=== PATIENT | female | born 1950 | race Caucasian/White ===

== ENCOUNTER 2025-05-13 11:50 | Emergency (ER) | payer MEDICARE, SELFPAY ==
--- OUTSIDE RECORDS SUMMARY | 2025-05-03 17:30 | XMS_ITS | Encounter Summary ---
Author Organization [facility] and [facility] Address [address] [place] [address] Care Team Providers Care General Production Manager Name Role Phone Asked, Nopcp Primary Care Provider Unavailabl e Reason for Visit * ReasonCommentsAnxiety Encounter Details DateTypeDepartmentCare Team (Latest Contact Info)Mdljlkwurrg73/17/2025 3:30 PM MDTOffice Visit [facility] [address] [place] [address] [phone] Dana Okeefe MD [facility] [place], [place] [id number] Anxiety (Primary Dx); Elevated blood pressure reading in office without diagnosis of hypertension; Mixed hyperlipidemia Social History Tobacco UseTypesPacks/DayYears UsedDateSmoking Tobacco: [id number] - 1999Smokeless Tobacco: NeverAlcohol UseStandard Drinks/WeekCommentsYes0 (1 standard drink = 0.6 oz pure alcohol)RARECommentsNoSex and Gender InformationValueDate RecordedSex Assigned at YaflmFjtjki52/04/2024 4:12 AM MDT Legal IepAwpull58/20/2018 1:15 PM MSTGender IwnbkuybNbkjkk44/04/2024 4:12 AM MDT Sexual OrientationNot on fileOccupationIndustryJob Start DateJob End DateRetired Not on fileNot on fileNot on filedocumented as of this encounter Last Filed Vital Signs Vital SignReadingTime TakenCommentsBlood Hylwppbs750/7405/03/2025 3:33 PM MDT Vpckk165805/03/2025 3:33 PM MDTTemperature--Respiratory Rate--Oxygen Cyspowqnuc94% 05/03/2025 3:33 PM MDTInhaled Oxygen Concentration--Qfwjvz18.5 kg (162 lb) 05/03/2025 3:33 PM PBVdkaswnQmgbet650.6 cm (5' 4 )05/03/2025 3:33 PM MDTstated Body Mass Index27.8105/03/2025 3:33 PM MDTdocumented in this encounter Progress Notes * Dana Okeefe MD - 05/03/2025 3:30 PM MDT Assessment and Plan: ICD-10-CM 1. Anxiety F41.9 ALPRAZolam (XANAX) 0.5 mg tablet 2. Elevated blood pressure reading in office without diagnosis of hypertension R03.0 Albumin/Creatinine Ratio Random Urine Comprehensive Metabolic Panel 3. Mixed hyperlipidemia E78.2 Comprehensive Metabolic Panel Lipid Panel #Severe anxiety with flights: prescribe xanax 0.5 mg tab x 10 for upcoming flights to/from [place]. #Elevated blood pressure: elevated in office today to 148/74, last prior BP on file was from 2023 and was elevated. Not interested in starting medication at this point. Recommend low salt diet and exercise. Recommend purchasing BP cuff and keeping BP log. RTC in 2-4 weeks for recheck and for wellness exam. Check CMP, urine ACR with annual labs today. Subjective: Patient ID: Muriel is a 74 y.o. female who presents to [facility] for discussion regarding flight anxiety and to establish a new PCP. Leaving Tuesday05/07/25 for [place] and feeling very anxious. Navneet Chester RN Was previously prescribed xanax for flight travel in past which helped a lot. Would like a prescription for this. CURRENT MEDICATIONS: Current Outpatient Medications Medication Sig ALPRAZolam (XANAX) 0.5 mg tablet Take 1 tablet by mouth 2 times daily as needed for anxiety. gabapentin (NEURONTIN) 300 mg capsule for Neuropathic Pain. 1-2 at bedtime. Ok to take 1-2 daytime if tolerated No current facility-administered medications for this visit. ALLERGIES: Patient has no known allergies. Above HPI reviewed. Review of Systems Constitutional: Negative. HENT: Negative. Eyes: Negative. Respiratory: Negative. Skin: Negative. Neurological: Negative. PAST MEDICAL INFORMATION: Past Medical History[1] Allergies[2] Objective: Vital Signs: Visit Vitals BP 148/74 Pulse 65 Ht 1.626 m (5' 4 ) Comment: stated Wt 73.5 kg (162 lb) Comment: stated LMP (LMP Unknown) SpO2 96% BMI 27.81 kg/m?? reports that she quit smoking about 25 years ago. Her smoking use included cigarettes. She started smoking about 40 years ago. She has a 15 pack-year smoking history. She has never used smokeless tobacco. Physical Exam Vitals reviewed. Constitutional: Appearance: Normal appearance. HENT: Head: Normocephalic and atraumatic. Eyes: Conjunctiva/sclera: Conjunctivae normal. Pulmonary: Effort: Pulmonary effort is normal. Musculoskeletal: Cervical back: Normal range of motion. Neurological: General: No focal deficit present. Mental Status: She is alert and oriented to person, place, and time. Psychiatric: Mood and Affect: Mood normal. Behavior: Behavior normal. Procedures DATA: No results found for this or any previous visit (from the past 24 hours). 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 Sciatica Snores Vitamin D deficiency Zoster 09/2021 [2] No Known Allergies documented in this encounter Miscellaneous Notes * Addendum Note - Navneet Chester RN - 05/03/2025 3:30 PM MDTAddended by: NAVNEET CHESTER on: 05/03/2025 04:28 PM Modules accepted: Orders documented in this encounter Plan of Treatment Not on file documented as of this encounter Procedures Procedure NamePriorityDate/TimeAssociated DiagnosisCommentsALBUMIN/CREATININE RATIO RANDOM GBUCXXxlkdvf40/17/2025 4:28 PM MDT Elevated blood pressure reading in office without diagnosis of hypertension LIPID JCZJLPgayogz01/17/2025 4:28 PM MDT Mixed hyperlipidemia COMPREHENSIVE METABOLIC JCLXIZsajrls22/17/2025 4:28 PM MDT Elevated blood pressure reading in office without diagnosis of hypertension Mixed hyperlipidemia documented in this encounter Results * (ABNORMAL) Lipid Panel (05/03/2025 4:28 PM MDT)ComponentValueRef RangeTest MethodAnalysis TimePerformed AtPathologist WarrfqtrzSthutbvdkokvj405(H)<=150 mg/dL05/03/2025 6:22 PM [facility] Comment: ?Range (mg/dL) Normal <150 Borderline High ?? 150 - 199 High ?200 - 499 Very High >/= 500 Oddqubzbfwj279(H)95 - 200 mg/dL05/03/2025 6:22 PM [facility]HDL68mg/dL05/03/2025 6:22 PM [facility] Iuutjfedox793<=129 mg/dL05/03/2025 6:22 PM [facility]Comment: NCEP III guidelines: ??TARGET VALUE ? < 100 mg/dL Desirable ? 100-129 mg/dL Above Desirable ? 130-159 mg/dL Borderline High ? 160-189 mg/dL High ? 190 mg/dL Very High ? Due to the limitations of the [facility] Calculation, a direct LDL measurement is recommendedin cases of Elevated BMI, Triglycerides >400 or calculated LDL's <10. Non JAQ2382 - 189 mg/dL05/03/2025 6:22 PM [facility]: For a better estimate of LDL-C in the context of hypertriglyceridemia, subtract 30 mg/dL from this non-HDL-C value. NCEP III guidelines: ??TARGET VALUE < 100 mg/dL Desirable 100-129 mg/dL Above Desirable 130-159 mg/dL Borderline High 160-189 mg/dL High => 190 Very High Risk factors include: Cigarette smoking, Hypertension, family history Specimen (Source)Anatomical Location / LateralityCollection Method / Volume Collection TimeReceived TimeBloodBLOOD SPECIMEN / UnknownVenipuncture / Unknown 05/03/2025 4:28 PM MDT1 4:28 PM MDT Narrative Authorizing ProviderResult TypeResult StatusJodie Mirza Okeefe MDLAB BLOOD ORDERABLESFinal ResultPerforming OrganizationAddressCity/State/[place] [address], [facility] [phone] * (ABNORMAL) Comprehensive Metabolic Panel (05/03/2025 4:28 PM MDT)Component ValueRef RangeTest MethodAnalysis TimePerformed AtPathologist SignatureGlucose Serum/Ybymla637(H)68 - 99 mg/dL05/03/2025 6:22 PM [facility] NHRMCBlood Urea Ptiufkae0489 - 20 mg/dL05/03/2025 6:22 PM [facility]Creatinine Serum/Plasma 0.820.55 - 1.02 mg/dL10/ 6:22 PM [facility]TTHE [facility] - [facility] CENTERBUN/Creatinine Ratio15.91 6:22 PM MDTPARKVIEW HEALTH [facility] - [facility] NORTHodium Serum/Bihbao106181 - 145 mmol/L 05/03/2025 6:22 PM MDTPARK[facility] Potassium Serum/Plasma3.93.5 - 5.1 mmol/L1 6:22 PM MDTTHE [facility] - [facility] MED[facility] CENTERChloride Serum/Yzgwro16129 - 112 mmol/L1 6:22 PM NCTPARK[facility] Carbon Hewjftl9733 - 26 mmol/L1 6:22 PM NCTPARK[facility] LAB[facility] - [facility] CENTERCalcium Serum/Plasma9.48.8 - 10.3 mg/dL05/03/2025 6:22 PM NCTPARK[facility] LAB[facility] - [facility] CENTERProtein Total Serum/Plasma7.36.2 - 8.1 g/dL05/03/2025 6:22 PM [facility]CTTHE [facility] - [facility] CENTERAlbumin4.43.2 - 4.6 g/dL05/03/2025 6:22 PM [facility]CTTHE [facility] - [facility] MED[facility] CENTERBilirubin Total0.50.3 - 1.2 mg/dL 05/03/2025 6:22 PM [facility] Aspartate Ynzjjaulqbcjtomk750 - 34 U/L1 6:22 PM NCTPARKVIEW [facility] - [facility] CENTERAlanine Mqldxlypueetqzvf950 - 55 U/L 05/03/2025 6:22 PM [facility] Alkaline Phosphatase Zfqax8208 - 150 U/L1 6:22 PM [facility] CENTERComment:Alkaline Phosphatase ranges can vary with age and gender. High levels are normally seen in children undergoing growth spurts and in females.Total Globulin2.9g/dL 05/03/2025 6:22 PM NCTPARKVIEW [facility] LAB[facility]ATORY - [facility] MED[facility] CENTERA/G Ratio1.5Auami40 6:22 PM MDTCAPE FEAR VALLEY MEDICAL CENTEREstimated GFR75>=60 mL/min/1.73 square meters 05/03/2025 6:22 PM MDT [facility]ENTERComment:The 2020 CKD-EPI creatinine equation (IDMS-traceable) was used to approximate GFR. It's often unreliable when one is acutely ill or . This estimate assumes a regular diet and an average physique. Because estimated GFR can differ by more than 30% from measured GFR, consider ordering cystatinC to further assess kidney function or stage CKD if necessary.Anion Hnd221 - 16 mmol/L1 6:22 PM [facility]OSPITALpecimen (Source) Anatomical Location / LateralityCollection Method / VolumeCollection Time Received TimeBloodBLOOD SPECIMEN / UnknownVenipuncture / Pilswpm8105/03/2025 4:28 PM MDT1 4:28 PM MDT Narrative Authorizing ProviderResult TypeResult StatusJodie Mirza Okeefe [facility] BLOOD ORDERABLESFinal ResultPerforming OrganizationAddressCity/State/ZIP CodePhone Number [address] [phone] * Albumin/Creatinine Ratio Random Urine (05/03/2025 4:28 PM MDT)ComponentValue Ref RangeTest MethodAnalysis TimePerformed AtPathologist SignatureAlbumin Random Urine1.0mg/dL05/04/2025 7:10 PM [facility], COCreatinine Random Duhuy165.0mg/dL05/04/2025 7:10 PM [facility] COAlbumin/Creatinine Ratio5.7<30.0 mg/g Creat1 7:10 PM [facility], COComment: Random Urine Collection mg/g Creatinine Normal-- <30 Moderately Increased 30-299 Clinical albuminuria >300 Specimen (Source)Anatomical Location / LateralityCollection Method / Volume Collection TimeReceived TimeUrineURINE SPECIMEN / Yqpxswp6605/03/2025 4:28 PM MDT 05/03/2025 4:28 PM MDT Narrative Authorizing ProviderResult TypeResult StatusJodie Mirza IVAN ORDERABLESFinal ResultPerforming OrganizationAddressCity/State/ZIP CodePhone Number [facility], [place] [address] [place] [address], [facility] [phone] documented in this encounter Visit Diagnoses Diagnosis Anxiety- Primary Anxiety state, unspecified Elevated blood pressure reading in office without diagnosis of hypertension Mixed hyperlipidemia documented in this encounter Care Teams Team MemberRelationshipSpecialtyStart DateEnd Date Asked, Nopcp . PCP - GeneralInternal Medicine12/19/23documented as of this encounter
[2025-05-13 12:02] VITALS: BP 169/84; PULSE 70; TEMP 36.5; O2SAT 99; BMI 27.5
--- NOTE | 2025-05-13 12:15 | PC.NURSE ---
Pt presents to ER 6 days after a flight in from [place] Pt states her ears started bothering her on the flight but have been becoming more painful Right ear is worse but pt states she had a hx of ear trauma in that ear as a child and she believes it is more sensitive Pt has been using swimmer ear drops Flies home tomorrow Rates pain 5/10
--- NOTE | 2025-05-13 12:24 | ED.EAR1 ---
HPI - Ear Problem General Chief complaint: Ear Stated complaint: BILATERAL EAR PAIN Time Seen by Provider: 05/13/25 12:08 Source: patient Mode of arrival: walk-in History of Present Illness HPI Narrative: 74 years old female presented to the ER with few days history of right ear pain and discomfort she mentioned that she already was feeling that way before she got into a flight from [place] to hear and that got worse when she was flying, mentioned that she is feeling some discomfort in the right ear she have a history of chronic issues with her ear before when she was younger She denies any fever or chills but she did have some runny nose over the last few days preceding this. She does have a history of allergy the patient denies any fever chills or any other concerns Related Data Previous Rx's ?Medication ?Instructions ?Recorded amoxicillin 500 mg capsule 500 mg PO TID 5 days #15 caps 05/13/25 loratadine 10 mg chewable tablet 10 mg PO DAILY #10 tabs 05/13/25 (Claritin) Allergies Allergy/AdvReac Type Severity Reaction Status Date / Time No Known Drug Allergies Allergy Verified 05/13/25 12:04 Review of Systems ROS Status of ROS 10 or more systems reviewed and unremarkable except as noted in history and below PFSH PFSH Social History Little interest or pleasure in doing things: not at all Feeling down, depressed, or hopeless: not at all Exam Narrative Exam Narrative: Nurses notes and vital signs reviewed and patient is not hypoxic. General: Well-appearing and in no apparent distress. Skin: Warm, dry, no pallor noted. No rash. Head: Normocephalic, atraumatic. Neck: Supple, non-tender. Eye: Pupils are equal, round and EOMI. No scleral icterus. Ears, Nose, Mouth, and Throat: The patient right tympanic membrane shows some serous fluid behind it it does not show any puncture and there is no significant erythema but the left ear examination was benign and the mild nasal congestion with no enlargement of the turbinates in the nasal mucosa Cardiovascular: Regular Rate and Rhythm without murmur, gallop or rub. Respiratory: No accessory muscle use or respiratory distress. Lungs are clear to auscultation, no wheezing, rales or rhonchi Chest Wall: no tenderness GI: Abdomen is soft, non-distended. Normal bowel sounds. No masses appreciated. No tenderness to palpation. No rebound, guarding, or rigidity noted. Neurological: A&O x4. No cranial nerve dysfunction observed. No truncal ataxia. Moves all extremities. Sensation intact. Psychiatric: Cooperative and interactive. Normal mood and affect. Constitutional Vital Signs, click to edit/add: Last Vital Signs Temp 97.7 F 05/13/25 12:02 Pulse 70 05/13/25 12:02 Resp 18 05/13/25 12:02 BP 169/84 H 05/13/25 12:02 Pulse Ox 99 05/13/25 12:02 Course Vital Signs Vital signs: Vital Signs Temperature 97.7 F 05/13/25 12:02 Pulse Rate 70 05/13/25 12:02 Respiratory Rate 18 05/13/25 12:02 Blood Pressure 169/84 H 05/13/25 12:02 Pulse Oximetry 99 05/13/25 12:02 Temperature 97.7 F 05/13/25 12:02 Pulse Rate 70 05/13/25 12:02 Respiratory Rate 18 05/13/25 12:02 Blood Pressure 169/84 H 05/13/25 12:02 Pulse Oximetry 99 05/13/25 12:02 Medical Decision Making [facility] Narrative Medical decision making narrative: The patient presentation is mostly secondary to otitis media she was started on Claritin in addition to amoxicillin to cover for right ear infection I did advise her not to travel while she is having an active ear infection because that would put her at risk of spontaneous rupture of the tympanic membrane The patient have fever or chills at the moment and her symptoms are mild Instructed about also applying Valsalva maneuver if she have to travel especially during ascending and descending of the flight and making sure that she is awake while the flight is descending The patient to follow-up with the primary care within 2 to 3 days and to come back to the ER in case of any worsening of the current symptoms or any new symptoms or concerns Discharge Plan Discharge Chief Complaint: Ear Clinical Impression: Otitis media Patient Disposition: Home, Self-Care Time of Disposition Decision: 12:25 Condition: Good Prescriptions / Home Meds: New amoxicillin 500 mg capsule 500 mg PO TID 5 Days Qty: 15 0RF Claritin 10 mg tablet,chewable 10 mg PO DAILY Qty: 10 0RF Print Language: Emirati Instructions: Ear Infection (ED) Additional Instructions: Please avoid flying with the ear infection You should see improvement within the course of 3 to 5 days Make sure that you continue the decongestant and the Claritin In case of a new symptom of fever or any pain please come back to the ER Make sure that you apply the Valsalva maneuver in the future flying experience while ascending or descending by the plane Discharge Date/Time: 05/13/25 13:20
--- OUTSIDE RECORDS SUMMARY | 2025-05-13 12:57 | XMS_ITS | Encounter Summary ---
Author Organization [facility] and [facility] Address [address] [place] [address] Care Team Providers Care Appointment Clerk Name Role Phone Asked, Nopcp Primary Care Provider Unavailabl e Encounter Details DateTypeDepartmentCare Team (Latest Contact Info)Oruescjavmc22/18/2025Results Follow-Up [place] [address] [facility] [address] [place] [address] Sada Figueroa, ANGIE [facility] Social History Tobacco UseTypesPacks/DayYears UsedDateSmoking Tobacco: ZyxvjkBmklgoapsg8678923 - 2000Smokeless Tobacco: NeverAlcohol UseStandard Drinks/WeekCommentsYes0 (1 standard drink = 0.6 oz pure alcohol)RARECommentsNoSex and Gender InformationValueDate RecordedSex Assigned at TxguqPtnsrs10/04/2024 4:12 AM MDT Legal KduHwgiou74/20/2018 1:15 PM MSTGender SarpofsqXtlzhl40/04/2024 4:12 AM MDT Sexual OrientationNot on fileOccupationIndustryJob Start DateJob End DateRetired Not on fileNot on fileNot on filedocumented as of this encounter Plan of Treatment Not on file documented as of this encounter Visit Diagnoses Not on filedocumented in this encounter Care Teams Team MemberRelationshipSpecialtyStart DateEnd Date Asked, Nopcp . PCP - GeneralInternal Medicine12/19/23documented as of this encounter
--- OUTSIDE RECORDS SUMMARY | 2025-05-13 12:57 | XMS_ITS | Patient Health Record ---
Author Organization [facility] Address [address] [place] [address] Care Team Providers Care Gate Watch Name Role Phone Francesco Diaz Unavailable [phone] Sylvie SCHAEFFER, Danyel Unavailable Unavailabl e Migration, Provider Unavailable Unavailable Allergies Allergen (clinical drug ingredient) Drug/Non Drug Allergy documented on EMR Reaction Allergy Type Onset Date Status NKDA (uncoded)UnknownAllergyActive Reason For Referral No Information Medications Medication SIG (Take, Route, Frequency, Duration) Notes Start Date End Date Status ZzzQuil 2 TAB(S) QHS *Please review a nd pick correct strength-formulation from [employer] [place] options. If intended option is not shown, discontinue and re-order from Quick Search* ActiveImitrex 25 MG1 tab(s) orally prnActiveXanax 0.25 MG1 tab(s) orally prn ActiveIbuprofen 200 MG2 tab(s) orally prnActive Problems Problem Type SNOMED Code ICD Code Onset Dates Problem Status W/U Status Risk Notes Problem Hand pain (28697371) HAND PAIN (719.44) ActiveconfirmedProblemCarpal tunnel syndrome (92623004)CARPAL TUNNEL SYNDROME (354.0)ActiveconfirmedProblemDegenerative joint disease of hand (92700998) OSTEOARTHROS NOS-HAND (715.94)Activeconfirmed Encounters Encounter Location Date Provider Diagnosis [facility] [address] [place] [address] 04/27/2025 Provider Migration Plan Of Treatment No Information Insurance Providers Payer Name Payer Address Payer Phone Subscriber Number Group Number Insured Name Patient Relationship to Insured Coverage Start Date Coverage End Date [employer] [address] [place] [address] Sarah Fisher - patient is the insured Medical (General) History Medical History History ICD Code depression migraine headacheosteoporosisSurgical History Surgery Date(Month/Year) Right hand webbing repair 1952 Right hand webbing repair 1963 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
--- OUTSIDE RECORDS SUMMARY | 2025-05-13 12:58 | XMS_ITS | Clinical Summary ---
Author Organization [facility] [employer] [facility] Address [address] [place] [id number] Care Team Providers Care Warning Coordination Meteorologist Name Role Phone Asked, Nopcp Primary Care Provider Unavailabl e Allergies No known active allergies Medications MedicationSigDispense QuantityRefillsLast FilledStart DateEnd DateStatus gabapentin (NEURONTIN) 300 mg capsule for Neuropathic Pain. 1-2 at bedtime. Ok to take 1-2 daytime if tolerated 180 capsule 3Active ALPRAZolam (XANAX) 0.5 mg tablet Take 1 tablet by mouth 2 times daily as needed for anxiety. 10 tablet 5Active lidocaine 5%, 700 mg/patch, (LIDODERM) Place 1 patch onto the skin daily for low back pain. Apply 12 hours on, 12 hours off. 14 patch Discontinued(*Med Hx: Patient reported med--reports no longer taking - does not d/c Rx at pharmacy) Active Problems ProblemNoted DateDiagnosed DatePain of right thumb07/02/2019Arthritis of carpometacarpal (CMC) joint of right thumb07/02/2019Decreased activities of daily living (ADL)07/02/2019Gastroesophageal reflux disease without esophagitis 11/01/2018Primary osteoarthritis of left knee11/01/2018Hepatitis CMigraines Carpal tunnel syndrome, bilateralOsteoarthritisInsomniaOsteopeniaArthritis Sciatica Resolved Problems ProblemNoted DateDiagnosed DateResolved DateDecreased range of motion (ROM) of left kneeGait icttmhmejbx20S/P total knee replacement, left Encounters DateTypeDepartmentCare TeoqTnlyllsyaxg13/18/2025Results Follow-Up [address] [place] [address] Sada Figueroa RN 05/03/2025 3:30 PM MDTOffice Visit [address] [place] [address] Dana Okeefe MD Anxiety (Primary Dx); Elevated blood pressure reading in office without diagnosis of hypertension; Mixed hyperlipidemiafrom Last 3 Months Immunizations ImmunizationAdministration DatesNext DuePneumococcal conjugate PCV 13009/29/2018 Tdap01/16/2016zoster live (ZOSTAVAX)12/02/2010 Family History Medical HistoryRelationCommentsBrain cancerBrother 1LeukemiaBrother 1Emphysema FatherBrain cancerSister 1CancerSister 1boneAnesth problemsNeg HxBleeding prob Neg HxClotting disorderNeg HxEarly CADNeg HxRelationStatusCommentsBrother 1 DeceasedBrother 2AliveFatherDeceasedMotherDeceasedSister 1DeceasedSister 2Alive Sister 3Alive Social History Tobacco UseTypesPacks/DayYears UsedDateSmoking Tobacco: DuhekqWygjdcdbik3891853 - 1999Smokeless Tobacco: Never Tobacco Cessation:Counseling Given: Not Answered Alcohol UseStandard Drinks/WeekCommentsYes0 (1 standard drink = 0.6 oz pure alcohol)RARECommentsNoSex and Gender InformationValueDate RecordedSex Assigned at BfgnsUlxshw15/04/2024 4:12 AM Laxmigal YguZtyakb23/20/2018 1:15 PM MSTGender EbltkqzbAmbzax03/04/2024 4:12 AM JOSEEexual OrientationNot on file OccupationIndustryJob Start DateJob End DateRetiredNot on fileNot on fileNot on file Last Filed Vital Signs Vital SignReadingTime TakenCommentsBlood Xhihbobl353/7410 3:33 PM MDT Nahwc056505/03/2025 3:33 PM WULWdyqhlywtzy69.9 ??C (98.4 ??F)12/19/2023 11:18 AM MDTRespiratory Bqce688712/19/2023 11:18 AM MDTOxygen Imrehqvpeo43%05/03/2025 3:33 PM MDTInhaled Oxygen Concentration--Jexzna62.5 kg (162 lb)05/03/2025 3:33 PM MDT glbmbhHlshom175.6 cm (5' 4 )05/03/2025 3:33 PM MDTstatedBody Mass Index27.81 05/03/2025 3:33 PM MDT Plan of Treatment Health MaintenanceDue DateLast DoneCommentsCT Aglfpcnxhxha1950Flexible Kyombyvwskhbt1950Hepatitis A Screening Adult1950Hepatitis B Screening Adult1950tool DNA Test (Cologuard)1950tool Occult Blood Test (FIT)1950Medical Durable Power of Manager Regional (MDPOA)1969Shingles Vaccine (2 of 3)RSV Vaccine Adult (1 - Risk 60-74 years 1- dose series)2011Pneumonia Vaccine 50+ (2 of 2 - PCV20 or PCV21)09/30/2019 09/29/2018Breast Cancer Screening (Mammogram), 09/13/2019 Influenza Vaccine (#1), 06/09/2015, 09/20/2014Tdap/Td Vaccine (3 - Td or Tdap)/07/2015, 03/24/20079959Pkhrnrhydgs07/30/2026 03/16/2016 (Previously Performed Outside of [facility])Colorectal Cancer Screening 03/16/20268564Hdvyzj31, 4Dexa Scan (Bone Density Screening)Dmvnarydk89/05/2024, 02/20/2024, 02/08/2015 (Previously Performed Outside of [facility]) Medical Devices ImplantedTypeAreaManufacturerDevice IdentifierShelf Expiration DateModel / Serial / LotRight Breast ImpImplantLeft Hand HardwareImplantCement Bone [id number] - [id number] Implanted:Qty: 2 on 10/31/2018 [facility] HospitalImplantLeft: KneeENCORE MEDICAL LP ENCO05//[id number] / / [id number] Ply Dmd Ptla E+ 8x32 - [id number] Implanted:Qty: 1 on 10/31/2018 by [facility] HospitalLeft: KneeENCORE MEDICAL LP ENCO01//[id number] / / [id number] Porous Femur Sz 7 L - [id number] Implanted:Qty: 1 on 10/31/2018 by [facility] HospitalLeft: KneeENCORE MEDICAL LP ENCO09/11/[id number] / / [id number] Non-Porous Tibia - [id number] Implanted:Qty: 1 on 10/31/2018 by [facility] HospitalLeft: KneeENCORE MEDICAL LP ENCO03/30/[id number] / / [id number] Knee Tibial Insert Implanted:Qty: 1 on 10/31/2018 by [id number] / / [id number] Mini Acutrak 18mm - [id number] Implanted:Qty: 1 on 06/28/2019 by [facility] at [facility] HospitalRight: ThumbACUMED NEFTALI ACMDAT2-M18 / / Scr Bn Mini 20.0mm At2-M20-S - [id number] Implanted:Qty: 1 on 06/28/2019 by [facility] at [facility] HospitalRight: ThumbACUMED NEFTALI THIDOL4-S61-O / / Procedures Procedure NamePriorityDate/TimeAssociated DiagnosisCommentsLIPID PANELRoutine 05/03/2025 4:28 PM MDT Mixed hyperlipidemia COMPREHENSIVE METABOLIC EBBLETrsslhx74/17/2025 4:28 PM MDT Elevated blood pressure reading in office without diagnosis of hypertension Mixed hyperlipidemia ALBUMIN/CREATININE RATIO RANDOM AHODDQjvgkvi93/17/2025 4:28 PM MDT Elevated blood pressure reading in office without diagnosis of hypertension DIGITAL SCREEN CHRISTIANO ULISSES-IMPLANT W/ VVYGJLYQTAFWPMfvqnga89/27/2020 3:20 PM MST Breast cancer screening by mammogram from Last 3 Months or Most Recently Relevant to Health Maintenance Results * Albumin/Creatinine Ratio Random Urine (05/03/2025 4:28 PM MDT)ComponentValue Ref RangeTest MethodAnalysis TimePerformed AtPathologist SignatureAlbumin Random Urine1.0mg/dL05/04/2025 7:10 PM [facility]inine Random Pdwjx334.0mg/dL05/04/2025 7:10 PM [facility]bumin/Creatinine Ratio5.7<30.0 mg/g Creat1 7:10 PM [facility] HOSPITALomment: Random Urine Collection mg/g Creatinine Normal-- <30 Moderately Increased 30-299 Clinical albuminuria >300 Specimen (Source)Anatomical Location / LateralityCollection Method / Volume Collection TimeReceived TimeUrineURINE SPECIMEN / Jbsqmrc8705/03/2025 4:28 PM MDT 05/03/2025 4:28 PM MDT Narrative Authorizing ProviderResult TypeResult StatusJodie Mirza IVAN ORDERABLESFinal ResultPerforming OrganizationAddressCity/State/[place] [id number] [place] [address] * (ABNORMAL) Lipid Panel (05/03/2025 4:28 PM MDT)ComponentValueRef RangeTest MethodAnalysis TimePerformed AtPathologist IqavuenjjFanesuubaffrq504(H)<=150 mg/dL05/03/2025 6:22 PM [facility] Comment: ?Range (mg/dL) Normal <150 Borderline High ?? 150 - 199 High ?200 - 499 Very High >/= 500 Ozrsczhucti986(H)95 - 200 mg/dL05/03/2025 6:22 PM [facility]HDL68mg/dL05/03/2025 6:22 PM [facility]LDL Rlmaynvryg526<=129 mg/dL05/03/2025 6:22 PM [facility]Comment: NCEP III guidelines: ??TARGET VALUE ? < 100 mg/dL Desirable ? 100-129 mg/dL Above Desirable ? 130-159 mg/dL Borderline High ? 160-189 mg/dL High ? 190 mg/dL Very High ? Due to the limitations of the Nate Nair Calculation, a direct LDL measurement is recommendedin cases of Elevated BMI, Triglycerides >400 or calculated LDL's <10. Non ROQ4988 - 189 mg/dL05/03/2025 6:22 PM [facility]Comment: For a better estimate of LDL-C in [...] MDLAB BLOOD ORDERABLESFinal ResultPerforming OrganizationAddressCity/State/ZIP CodePhone Number [facility] - [address] [phone] * (ABNORMAL) Comprehensive Metabolic Panel (05/03/2025 4:28 PM MDT)Component ValueRef RangeTest MethodAnalysis TimePerformed AtPathologist SignatureGlucose Serum/Hgwijy593(H)68 - 99 mg/dL05/03/2025 6:22 PM MDTCOMMUNITY [facility]OSPITALBlood Urea Oebqgxld1161 - 20 mg/dL05/03/2025 6:22 PM [facility]OSPITALCreatinine Serum/Plasma 0.820.55 - 1.02 mg/dL05/03/2025 6:22 PM [facility] HOSPITALBUN/Creatinine Ratio15.91 6:22 PM [facility]ITALodium Serum/Gxlrti214192 - 145 mmol/L 05/03/2025 6:22 PM [facility] Potassium Serum/Plasma3.93.5 - 5.1 mmol/L1 6:22 PM [facility] HOSPITALChloride Serum/Uugucy56357 - 112 mmol/L1 6:22 PM [facility] Carbon Unjsbux4217 - 26 mmol/L1 6:22 PM MDTCOMMUNITY REG[facility]OSPITALCalcium Serum/Plasma9.48.8 - 10.3 mg/dL05/03/2025 6:22 PM [facility]Protein Total Serum/Plasma7.36.2 - 8.1 g/dL05/03/2025 6:22 PM [facility]Albumin4.43.2 - 4.6 g/dL05/03/2025 6:22 PM [facility]Bilirubin Total0.50.3 - 1.2 mg/dL 05/03/2025 6:22 PM [facility] Aspartate Anfrixddkjatedtw985 - 34 U/L1 6:22 PM [facility]Alanine Qoxxfzgtptsivrpf329 - 55 U/L 05/03/2025 6:22 PM [facility] Alkaline Phosphatase Lfefm4107 - 150 U/L1 6:22 PM [facility]Comment:Alkaline Phosphatase ranges can vary with age and gender. High levels are normally seen in children undergoing growth spurts and in females.Total Globulin2.9g/dL 05/03/2025 6:22 PM [facility]A/G Ratio1.4Zrofy04 6:22 PM [facility] SOUTHEstimated GFR75>=60 mL/min/1.73 square meters 05/03/2025 6:22 PM [facility]ALEMComment:The 2020 CKD-EPI creatinine equation (IDMS-traceable) was used to approximate GFR. It's often unreliable when one is acutely ill or . This estimate assumes a regular diet and an average physique. Because estimated GFR can differ by more than 30% from measured GFR, consider ordering cystatinC to further assess kidney function or stage CKD if necessary.Anion Svz063 - 16 mmol/L1 6:22 PM [facility]Hpecimen (Source) Anatomical Location / LateralityCollection Method / VolumeCollection Time Received TimeBloodBLOOD SPECIMEN / UnknownVenipuncture / Nwkxnmw0005/03/2025 4:28 PM MDT1 4:28 PM MDT Narrative Authorizing ProviderResult TypeResult StatusJodie Mirza BECK BLOOD ORDERABLESFinal ResultPerforming OrganizationAddressCity/State/ZIP CodePhone Number [facility] - [address] [address], [facility] [phone] * DIGITAL SCREEN CHRISTIANO ULISSES-IMPLNT W/ TOMOSYNTHESIS (09/13/2019 3:20 PM MST) Anatomical RegionLateralityModalityBreastBilateralMammographySpecimen (Source) Anatomical Location / LateralityCollection Method / VolumeCollection Time Received Time09/13/2019 2:35 PM MST Impressions 09/13/2019 6:52 PM MST IMPRESSION: Negative (BI-RADS Category 1) RECOMMENDATION: Routine screening mammogram in 1 year. Report Narrative 09/13/2019 6:52 PM [facility] EXAM(S): DIGITAL SCREENING MAMMOGRAM-IMPLANT WITH TOMOSYNTHESIS REASON FOR EXAM: screening. HISTORY: The patient has a history of right breast augmentation at age 17 - 1st implant and right breast augmentation in 2004 - Saline implant-. The patient has no personal history of cancer. The patient has no family history of breast cancer. COMPARISON: The present examination has been compared to prior imaging studies dated 02/09/2016 and 05/31/2013. MAMMOGRAM FINDINGS: The following mammographic views were obtained: left MLO with tomosynthesis and CC with tomosynthesis; right MLO, CC and XCCL. CAD was utilized for this examination. There are scattered areas of fibroglandular density. No dominant mass, suspicious calcifications or architectural distortion in either breast. ??There is no significant change since prior imaging. Procedure Note Princess Ortiz MD - 09/13/2019 EXAM(S): DIGITAL SCREENING MAMMOGRAM-IMPLANT WITH TOMOSYNTHESIS REASON FOR EXAM: screening. HISTORY: The patient has a history of right breast augmentation at age 17 - 1st implant and right breast augmentation in 2004 - Saline implant-. The patient has no personal history of cancer. The patient has no family history of breast cancer. COMPARISON: The present examination has been compared to prior imaging studies dated 02/09/2016 and 05/31/2013. MAMMOGRAM FINDINGS: The following mammographic views were obtained: left MLO with tomosynthesis and CC with tomosynthesis; right MLO, CC and XCCL. CAD was utilized for this examination. There are scattered areas of fibroglandular density. No dominant mass, suspicious calcifications or architectural distortion in either breast. There is no significant change since prior imaging. IMPRESSION: Negative (BI-RADS Category 1) RECOMMENDATION: Routine screening mammogram in 1 year. Report Authorizing ProviderResult TypeResult StatusLouise Rere KNXO MAMMOGRAPHY ORDERABLESFinal Result from Last 3 Months or Most Recently Relevant to Health Maintenance Insurance * Guarantor: Muriel Fisher AAcnaderunt TypeRelation to PatientDate of BirthPhone Billing AddressPersonal/JeviakGfei1950 [id number] [place] [address] * Guarantor: Muriel Fisherunt TypeRelation to PatientDate of BirthPhone Billing AddressPersonal/WmxhkyKcns1950 [address] [place] [address] Advance Directives * Full Code (Latest Code Status on File) Date ActivatedDate XbqenhoiltzByslzwgn73/12/2019 7:07 AM06/28/2019 8:11 AM * DNR Date ActivatedDate InactivatedComments10/31/2018 2:29 PM11/01/2018 7:22 PMQuestion AnswerCommentsCode status based on:* Written advance directives Protocol Document:* [email or web address]?sourcedoc=/Documents/Do%20 Not%20Attempt%20Resusc itation%20(%E2%80%9CNo%20Code%E2%80%9D)%20Policy-[facility].docx&action=default&Defau ltItemOpen=1 * Full Code Date ActivatedDate InactivatedComments10/31/2018 9:47 AM10/31/2018 2:28 PM * Full Code Date ActivatedDate InactivatedComments10/31/2018 6:32 AM10/31/2018 7:40 AM Care Teams Team MemberRelationshipSpecialtyStart DateEnd Date Asked, Jessicacp . PCP - GeneralInternal Medicine12/19/23
== END 2025-05-13 13:20 | disposition home or self-care (01) ==
PROVIDERS: Emergency Provider Emergency Medicine
DX: H66.91 Otitis media, unspecified, right ear (principal)
CPT/HCPCS: 99283